=== PATIENT | male | born 1980 | race Caucasian/White ===

== ENCOUNTER 2019-03-22 20:37 | Emergency (ER) | payer MEDICAID ==
[~2019-03-22] VITALS: Ht 175.3 cm; Wt 77.1 kg
[2019-03-22 21:18] LABS: BASOPHILS ABSOLUTE AUTO 0.18 K/mm3 (0.00-0.23); BASOPHILS PERCENT AUTO 2 % (0-2); EOSINOPHILS ABSOLUTE AUTO 0.29 K/mm3 (0.00-0.68); EOSINOPHILS PERCENT AUTO 4 % (0-6); Hematocrit 38.2 % (37.0-53.0); Hemoglobin 11.9 g/dL (13.5-17.5); IMMATURE GRAN ABSOLUTE AUTO 0.03 K/mm3 (0.00-0.10); IMMATURE GRAN PERCENT AUTO 0 % (0-1); LYMPHOCYTES ABSOLUTE AUTO 2.45 K/mm3 (0.84-5.20); LYMPHOCYTES PERCENT AUTO 33 % (21-46); MONOCYTES ABSOLUTE AUTO 1.11 K/mm3 (0.16-1.47); MONOCYTES PERCENT AUTO 15 % (4-13); Mean Corpuscular HGB Conc 31.2 g/dL (31.5-36.5); Mean Corpuscular Volume 87 fL (80-100); Mean Platelet Volume 9.6 fL (9.1-12.4); NEUTROPHILS ABSOLUTE AUTO 3.48 K/mm3 (1.96-9.15); NEUTROPHILS PERCENT AUTO 46 % (41-73); Platelet Count 321 K/mm3 (150-400); RDW Coefficient Variation 17.2 % (11.7-14.2); White Blood Cell Count 7.54 K/mm3 (4.00-11.30)
[2019-03-22 21:40] LABS: Alanine Aminotransfer (ALT/SGP 75 U/L (12-78); Albumin, Blood 3.6 g/dL (3.4-5.0); Albumin/Globulin Ratio 0.9 (0.8-1.8); Alk Phos 146 U/L (50-136); Anion Gap 9 mmol/L (6-16); Aspartate Aminotrans (AST/SGOT 78 U/L (12-37); Bilirubin, Total 0.4 mg/dL (0.1-1.0); Blood Urea Nitrogen 5 mg/dL (8-24); Bun/Creatinine Ratio 7.3 (12.0-20.0); CO2, Blood 22 mmol/L (21-32); Calcium, Blood 8.6 mg/dL (8.5-10.1); Chloride, Blood 107 mmol/L (98-108); Creatinine, Blood 0.68 mg/dL (0.60-1.20); Glomerular Filtration Rate >60 (60-); Glucose, Blood 96 mg/dL (70-99); Potassium, Blood 4.1 mmol/L (3.5-5.5); Salicylate 6.7 mg/dL (2.8-20.0); Sodium, Blood 138 mmol/L (136-145); Total Protein, Blood 7.6 g/dL (6.4-8.2)
[2019-03-22 21:42] LABS: Source, Urine Clean Catch
[2019-03-22 21:48] LABS: Bilirubin, Urine Neg (Neg); Blood, Urine Neg (Neg); Glucose Qualitative, Urine Neg (Neg); Ketones, Urine Neg (Neg); Leukocyte Esterase, Urine Neg (Neg); Nitrite, Urine Neg (Neg); Protein, Urine 1+ (Neg); Urobilinogen, Urine NORM (Normal)
[2019-03-22 21:50] LABS: Ethanol (Alcohol), Blood, Med 334 mg/dL
[2019-03-22 21:51] LABS: Acetaminophen, Random <2.0 ug/mL (10.0-30.0)
[2019-03-22 21:57] LABS: Appearance, Urine Clear (Clear); Color, Urine Pale Yellow (P-Yellow)
[2019-03-22 22:02] LABS: U Amphetamine Screen Not Detected; U Barbituate Screen Not Detected; U Benzodiazapine Screen Not Detected; U Buprenorphine Screen Not Detected; U Cannabinoids Screen Not Detected; U Cocaine Screen Not Detected; U Methadone Screen Not Detected; U Methamphetamine Screen Not Detected; U Opiates Screen Not Detected; U Oxycodone Screen Not Detected; U Phencyclidine Screen Not Detected; U Propoxyphene Screen Not Detected
== END 2019-03-22 22:55 | disposition left against medical advice (07) ==
LOC: ER 20:37
PROVIDERS: Physician Assistant
DX: F10.20 Alcohol dependence, uncomplicated (principal)
CPT/HCPCS: 36415; 80053; 84443; 85025; 93005; 93010; 99284-25; G0480

== ENCOUNTER 2019-03-23 00:49 | Emergency (ER) | payer SELFPAY | END 2019-03-23 02:45 | disposition left against medical advice (07) | LOC: ER 00:49 | DX: Z53.21 Procedure and treatment not carried out due to patient leaving prior to being seen by health care provider (principal) ==

== ENCOUNTER 2019-03-25 15:11 | Emergency (ER) | payer MEDICAID ==
[~2019-03-25] VITALS: Ht 175.3 cm; Wt 77.1 kg
[2019-03-25 19:12] LABS: BASOPHILS ABSOLUTE AUTO 0.18 K/mm3 (0.00-0.23); BASOPHILS PERCENT AUTO 3 % (0-2); EOSINOPHILS ABSOLUTE AUTO 0.26 K/mm3 (0.00-0.68); EOSINOPHILS PERCENT AUTO 4 % (0-6); Hematocrit 38.5 % (37.0-53.0); Hemoglobin 11.8 g/dL (13.5-17.5); IMMATURE GRAN ABSOLUTE AUTO 0.01 K/mm3 (0.00-0.10); IMMATURE GRAN PERCENT AUTO 0 % (0-1); LYMPHOCYTES ABSOLUTE AUTO 2.41 K/mm3 (0.84-5.20); LYMPHOCYTES PERCENT AUTO 40 % (21-46); MONOCYTES PERCENT AUTO 10 % (4-13); Mean Corpuscular HGB 26.8 pg (26.0-34.0); Mean Corpuscular HGB Conc 30.6 g/dL (31.5-36.5); Mean Corpuscular Volume 88 fL (80-100); Mean Platelet Volume 9.6 fL (9.1-12.4); NEUTROPHILS ABSOLUTE AUTO 2.57 K/mm3 (1.96-9.15); NEUTROPHILS PERCENT AUTO 43 % (41-73); Platelet Count 328 K/mm3 (150-400); RDW Coefficient Variation 17.1 % (11.7-14.2); RDW Standard Deviation 54.3 fL (35.1-46.3); White Blood Cell Count 6.03 K/mm3 (4.00-11.30)
[2019-03-25 19:32] LABS: Alanine Aminotransfer (ALT/SGP 60 U/L (12-78); Albumin, Blood 3.3 g/dL (3.4-5.0); Albumin/Globulin Ratio 0.9 (0.8-1.8); Alk Phos 132 U/L (50-136); Anion Gap 6 mmol/L (6-16); Aspartate Aminotrans (AST/SGOT 62 U/L (12-37); Bilirubin, Total 0.3 mg/dL (0.1-1.0); Blood Urea Nitrogen 4 mg/dL (8-24); Bun/Creatinine Ratio 5.8 (12.0-20.0); CO2, Blood 23 mmol/L (21-32); Calcium, Blood 8.5 mg/dL (8.5-10.1); Chloride, Blood 111 mmol/L (98-108); Globulin, Blood 3.7 g/dL (2.2-4.0); Glomerular Filtration Rate >60 (60-); Glucose, Blood 95 mg/dL (70-99); Potassium, Blood 4.1 mmol/L (3.5-5.5); Sodium, Blood 140 mmol/L (136-145)
[2019-03-25 19:34] LABS: Ethanol (Alcohol), Blood, Med 316 mg/dL
== END 2019-03-25 19:50 | disposition home or self-care (01) ==
LOC: ER 15:11
PROVIDERS: Emergency Medicine
DX: F10.129 Alcohol abuse with intoxication, unspecified (principal); F17.200 Nicotine dependence, unspecified, uncomplicated
CPT/HCPCS: 36415; 80053; 85025; 99284; G0480

== ENCOUNTER 2019-07-20 10:21 | Inpatient (IN) | payer OTHER ==
[~2019-07-20] VITALS: Ht 175.3 cm; Wt 71.6 kg
[~2019-07-20 10:21] MED LIST: Bactrim Ds Tab1 EACH PO; Cephalexin500 M1 PO
[2019-07-20 11:12] LABS: Source, Urine Clean Catch
[2019-07-20 11:18] LABS: BASOPHILS PERCENT AUTO 2 % (0-2); EOSINOPHILS PERCENT AUTO 4 % (0-6); Hematocrit 39.3 % (37.0-53.0); Hemoglobin 12.4 g/dL (13.5-17.5); IMMATURE GRAN ABSOLUTE AUTO 0.03 K/mm3 (0.00-0.10); IMMATURE GRAN PERCENT AUTO 1 % (0-1); LYMPHOCYTES ABSOLUTE AUTO 1.37 K/mm3 (0.84-5.20); LYMPHOCYTES PERCENT AUTO 25 % (21-46); MONOCYTES ABSOLUTE AUTO 0.92 K/mm3 (0.16-1.47); MONOCYTES PERCENT AUTO 17 % (4-13); Mean Corpuscular HGB Conc 31.6 g/dL (31.5-36.5); Mean Corpuscular Volume 89 fL (80-100); Mean Platelet Volume 10.9 fL (9.1-12.4); NEUTROPHILS ABSOLUTE AUTO 2.86 K/mm3 (1.96-9.15); NEUTROPHILS PERCENT AUTO 52 % (41-73); Platelet Count 215 K/mm3 (150-400); RDW Coefficient Variation 18.8 % (11.7-14.2); RDW Standard Deviation 61.6 fL (35.1-46.3); Red Blood Cell Count 4.43 M/mm3 (4.30-5.90); White Blood Cell Count 5.48 K/mm3 (4.00-11.30)
[2019-07-20 11:21] LABS: Bilirubin, Urine Neg (Neg); Blood, Urine Neg (Neg); Glucose Qualitative, Urine Neg (Neg); Ketones, Urine Neg (Neg); Leukocyte Esterase, Urine Neg (Neg); Nitrite, Urine Neg (Neg); Protein, Urine Neg (Neg); Specific Gravity, Urine 1.005 (1.003-1.022); Urobilinogen, Urine NORM (Normal)
[2019-07-20 11:36] LABS: U Benzodiazapine Screen DETECTED
[2019-07-20 11:37] LABS: Alanine Aminotransfer (ALT/SGP 72 U/L (12-78); Albumin, Blood 3.6 g/dL (3.4-5.0); Albumin/Globulin Ratio 0.8 (0.8-1.8); Alk Phos 235 U/L (50-136); Anion Gap 9 mmol/L (6-16); Aspartate Aminotrans (AST/SGOT 91 U/L (12-37); Bilirubin, Total 1.1 mg/dL (0.1-1.0); Blood Urea Nitrogen 11 mg/dL (8-24); Bun/Creatinine Ratio 17.4 (12.0-20.0); CO2, Blood 25 mmol/L (21-32); Calcium, Blood 10.2 mg/dL (8.5-10.1); Chloride, Blood 101 mmol/L (98-108); Creatinine, Blood 0.63 mg/dL (0.60-1.20); Ethanol (Alcohol), Blood, Med <3 mg/dL; Globulin, Blood 4.4 g/dL (2.2-4.0); Glomerular Filtration Rate >60 (60-); Glucose, Blood 89 mg/dL (70-99); Potassium, Blood 3.3 mmol/L (3.5-5.5); Sodium, Blood 135 mmol/L (136-145); Troponin I <0.015 ng/mL (0.000-0.040)
[2019-07-20 11:38] LABS: U Amphetamine Screen Not Detected; U Barbituate Screen Not Detected; U Buprenorphine Screen Not Detected; U Cannabinoids Screen Not Detected; U Cocaine Screen Not Detected; U Methadone Screen Not Detected; U Methamphetamine Screen Not Detected; U Opiates Screen Not Detected; U Oxycodone Screen Not Detected; U Propoxyphene Screen Not Detected
[2019-07-20 11:43] LABS: Appearance, Urine Clear (Clear); Color, Urine Yellow (P-Yellow)
[2019-07-20 15:34] LABS: Hematocrit 32.6 % (37.0-53.0); Hemoglobin 10.3 g/dL (13.5-17.5); Mean Corpuscular HGB 28.1 pg (26.0-34.0); Mean Corpuscular HGB Conc 31.6 g/dL (31.5-36.5); Mean Corpuscular Volume 89 fL (80-100); Mean Platelet Volume 11.1 fL (9.1-12.4); Platelet Count 201 K/mm3 (150-400); RDW Standard Deviation 62.1 fL (35.1-46.3); Red Blood Cell Count 3.66 M/mm3 (4.30-5.90)
[2019-07-20 15:52] LABS: Alanine Aminotransfer (ALT/SGP 60 U/L (12-78); Albumin, Blood 2.9 g/dL (3.4-5.0); Albumin/Globulin Ratio 0.8 (0.8-1.8); Alk Phos 197 U/L (50-136); Anion Gap 7 mmol/L (6-16); Aspartate Aminotrans (AST/SGOT 73 U/L (12-37); Bilirubin, Total 0.9 mg/dL (0.1-1.0); Blood Urea Nitrogen 10 mg/dL (8-24); CO2, Blood 25 mmol/L (21-32); Calcium, Blood 9.4 mg/dL (8.5-10.1); Chloride, Blood 109 mmol/L (98-108); Creatinine, Blood 0.67 mg/dL (0.60-1.20); Globulin, Blood 3.7 g/dL (2.2-4.0); Glomerular Filtration Rate >60 (60-); Glucose, Blood 88 mg/dL (70-99); Potassium, Blood 4.1 mmol/L (3.5-5.5); Sodium, Blood 141 mmol/L (136-145); Total Protein, Blood 6.6 g/dL (6.4-8.2)
--- NOTE | 2019-07-20 16:10 | NUR ---
RECEIVED PATIENT FROM ED AT 1525. PT WAS AWAKE, CONFUSED, REACHING FOR THINGS IN THE AIR, MUMBLING INCOHERENTLY. SHORTLY AFTER TRANSFER TO BED, BECAME MORE AGITATED AND RESTLESS, ATTEMPTING TO GET OOB TO LOOK FOR CIGARETTES. PLACED IN BILATERAL WRIST AND ANKLE RESTRAINTS WITH A ALEX VEST FOR HIS SAFETY. ATIVAN 4 MG IV GIVEN WITH NO EFFECT. PRECEDEX GTT STARTED. PT MORE CALM, RESTING COMFORTABLY.
--- NOTE | 2019-07-20 19:15 | NUR ---
SHIFT SUMMARY: PT REMAINED CALM ON PRECEDEX GTT. VSS, SINUS RHYTHM. SLEEPING AT THIS TIME. NO W/D SXS NOTED. LUNGS CLEAR.
--- NOTE | 2019-07-20 20:00 | NUR ---
PT RESTING IN BED. ON PRECEDEX GTT FOR AGITATION RELATED TO ETOH WD. PT WILL TURN HEAD TOWARDS VOICE WHEN HIS NAME IS SAID. WILL NOT OPEN EYE'S, DOES NOT FOLLOW COMMANDS. DROWSY. NO SIGN OF DISTRESS.
[2019-07-21 03:18] LABS: BASOPHILS ABSOLUTE AUTO 0.08 K/mm3 (0.00-0.23); BASOPHILS PERCENT AUTO 2 % (0-2); EOSINOPHILS ABSOLUTE AUTO 0.24 K/mm3 (0.00-0.68); EOSINOPHILS PERCENT AUTO 5 % (0-6); Hematocrit 35.4 % (37.0-53.0); Hemoglobin 11.1 g/dL (13.5-17.5); IMMATURE GRAN ABSOLUTE AUTO 0.01 K/mm3 (0.00-0.10); IMMATURE GRAN PERCENT AUTO 0 % (0-1); LYMPHOCYTES ABSOLUTE AUTO 1.22 K/mm3 (0.84-5.20); LYMPHOCYTES PERCENT AUTO 23 % (21-46); MONOCYTES ABSOLUTE AUTO 0.75 K/mm3 (0.16-1.47); MONOCYTES PERCENT AUTO 14 % (4-13); Mean Corpuscular HGB Conc 31.4 g/dL (31.5-36.5); Mean Corpuscular Volume 89 fL (80-100); Mean Platelet Volume 10.3 fL (9.1-12.4); NEUTROPHILS ABSOLUTE AUTO 3.09 K/mm3 (1.96-9.15); NEUTROPHILS PERCENT AUTO 57 % (41-73); Platelet Count 204 K/mm3 (150-400); RDW Coefficient Variation 18.7 % (11.7-14.2); RDW Standard Deviation 61.1 fL (35.1-46.3); Red Blood Cell Count 3.97 M/mm3 (4.30-5.90); White Blood Cell Count 5.39 K/mm3 (4.00-11.30)
[2019-07-21 03:38] LABS: Alanine Aminotransfer (ALT/SGP 56 U/L (12-78); Albumin, Blood 2.8 g/dL (3.4-5.0); Albumin/Globulin Ratio 0.8 (0.8-1.8); Alk Phos 189 U/L (50-136); Anion Gap 7 mmol/L (6-16); Aspartate Aminotrans (AST/SGOT 55 U/L (12-37); Bilirubin, Total 0.9 mg/dL (0.1-1.0); Blood Urea Nitrogen 6 mg/dL (8-24); Bun/Creatinine Ratio 9.8 (12.0-20.0); CO2, Blood 24 mmol/L (21-32); Chloride, Blood 113 mmol/L (98-108); Creatinine, Blood 0.61 mg/dL (0.60-1.20); Globulin, Blood 3.7 g/dL (2.2-4.0); Glomerular Filtration Rate >60 (60-); Glucose, Blood 101 mg/dL (70-99); Potassium, Blood 3.8 mmol/L (3.5-5.5); Sodium, Blood 144 mmol/L (136-145); Total Protein, Blood 6.5 g/dL (6.4-8.2)
--- NOTE | 2019-07-21 05:42 | NUR ---
SUMMARY PT HAS BEEN SLEEPING MOST OF THE NIGHT. WILL AWAKEN WHEN STIMULATED AND WILL HOLLER OUT NONSENSICAL WORDS AT TIMES. THIS AM HE WOKE UP AND IS ADAMANT ABOUT GOING OUTSIDE TO SMOKE. YELLING OUT. CAN STATE THAT HE IS IN THE HOSPITAL. GAVE ATIVAN. ON PRECEDEX GTT FOR ETOH WD. HAS CONDOM CATH ON DUE TO BEING INCONTINENT.
--- NOTE | 2019-07-21 08:20 | NUR ---
ASSUMED CARE OF PT AT 0700. REPORT FROM RAJ PAL. PT RESTING IN BED. SOFT BILATERAL WRIST RESTRAINTS AND ALEX VEST IN PLACE. PT ALTERNATES BETWEEN SLEEP AND WAKES, PULLING ON RESTRAINTS, YELLING OUT NON SENSICAL PHRASES. APPEARS TO BE HAVING AUDITORY AND VISUAL HALLUCINATIONS. PT STATES HE IS HOSPITAL AND WANTS TO GO SMOKE. ATTEMTPED TO REDIRECT. PT THEN MAKES OTHER NONSENSICAL COMMENTS. RETURNS TO SLEEP. PRECEDEX INFUSING AT 1.0 MCG/KG/HR AT THIS TIME. WILL CONTINUE TO MONITOR CIWA AND RESTRAINTS FOR PT SAFETY. VSS.
--- NOTE | 2019-07-21 11:18 | NUR ---
DR GREWAL AT BEDSIDE. UPDATED ON PT STATUS THIS AM. PRECEDEX CONTINUES AT 0.7 MCG/KG/HR. PT SLEEPING AND NO LONGER HAVING OUTBURSTS POST LIBRUIM ADMINSTRATION. WILL CONTINUE TO MONITOR.
--- NOTE | 2019-07-21 17:26 | NUR ---
SHIFT SUMMARY PT REMAINED ON PRECEDEX ENTIRE SHIFT, CURRENTLY INFUSING AT 0.7 MCG/KG/HR. PT WAKES INTERMITTANTLY OR c VERBAL STIMULI. PT MENTAL STATUS IMPROVING THIS SHIFT. OCCASIONAL MAKES NONSENSICAL COMMENTS BUT ABLE TO CONVERSE BETTER. LESS AGGITATED THAN THIS MORNING. ALSO APPEARS TO HAVE SOME HALLUCINATION BUT LESS FREQUENT THAN THIS MORNING AND PT MORE DIRECTABLE. PT REQUESTING TO SEE MOTHER AND TEENAGE CHILDREN. CALL PLACED TO MOTHERHERB, TO UPDATE. PT TAKING PO FLUIDS, MEDICATED c LIBRUIM NEEDED. WILL CONTINUE TO MONITOR, REPORT TO ONCOMING NURSE.
[2019-07-22 03:41] LABS: BASOPHILS ABSOLUTE AUTO 0.06 K/mm3 (0.00-0.23); BASOPHILS PERCENT AUTO 1 % (0-2); EOSINOPHILS ABSOLUTE AUTO 0.25 K/mm3 (0.00-0.68); EOSINOPHILS PERCENT AUTO 3 % (0-6); Hematocrit 35.8 % (37.0-53.0); IMMATURE GRAN ABSOLUTE AUTO 0.03 K/mm3 (0.00-0.10); IMMATURE GRAN PERCENT AUTO 0 % (0-1); LYMPHOCYTES ABSOLUTE AUTO 1.18 K/mm3 (0.84-5.20); LYMPHOCYTES PERCENT AUTO 14 % (21-46); MONOCYTES ABSOLUTE AUTO 1.31 K/mm3 (0.16-1.47); MONOCYTES PERCENT AUTO 15 % (4-13); Mean Corpuscular HGB 27.6 pg (26.0-34.0); Mean Corpuscular HGB Conc 30.7 g/dL (31.5-36.5); Mean Corpuscular Volume 90 fL (80-100); Mean Platelet Volume 10.5 fL (9.1-12.4); NEUTROPHILS ABSOLUTE AUTO 5.73 K/mm3 (1.96-9.15); NEUTROPHILS PERCENT AUTO 67 % (41-73); Platelet Count 222 K/mm3 (150-400); RDW Coefficient Variation 18.3 % (11.7-14.2); RDW Standard Deviation 60.4 fL (35.1-46.3); Red Blood Cell Count 3.98 M/mm3 (4.30-5.90); White Blood Cell Count 8.56 K/mm3 (4.00-11.30)
[2019-07-22 03:49] LABS: Anion Gap 8 mmol/L (6-16); Blood Urea Nitrogen 4 mg/dL (8-24); Bun/Creatinine Ratio 7.8 (12.0-20.0); CO2, Blood 23 mmol/L (21-32); Calcium, Blood 8.4 mg/dL (8.5-10.1); Chloride, Blood 110 mmol/L (98-108); Creatinine, Blood 0.52 mg/dL (0.60-1.20); Glomerular Filtration Rate >60 (60-); Glucose, Blood 93 mg/dL (70-99); Magnesium, Blood 1.9 mg/dL (1.6-2.4); Phosphorus, Blood 3.5 mg/dL (2.5-4.9); Sodium, Blood 141 mmol/L (136-145)
--- NOTE | 2019-07-22 05:59 | NUR ---
SHIFT SUMMARY PATIENT HAD A ROUGHT NIGHT. CIWAs CONTINUED TO CLIMB DESPITE GIVING MULTIPLE LIBRIUM, AT ONE POINT 100MG, MULTIPLE DOSES OF ATIVAN. RECEIVED 3 MG IV HALDOL, NOW SLEEPING SOUNDLY. PATIENT USUALLY ANSWERED ALL ORIENTATION QUESTIONS CORRECTLY, WAS MOSTLY BEING SCORED ON AGITATION, ANXIETY, TREMORS, HEADACHE, AND SWEATING. WAS NEVER COMBATIVE, JUST CONTINUING TO TRY TO GET OUT OF BED TO "GO SMOKE A CIGARETTE," FAILED AT REDIRECTING/ REORIENTING. ASSESSMENT IS CHARTED. VSS. WILL CONTINUE TO MONITOR.
--- NOTE | 2019-07-22 08:00 | NUR ---
ASSESMENT PT RESTRAINED WITH BILAT SOFT WRIST RESTRAINTS AND VEST. CHÁVEZ AND WILL FOLLOW COMMANDS AND OPEN EYES TO VERBAL STIM BUT MUMBLES WORDS ANXIOUS AT TIMES AND CIWA MEDS PER MD ORDERS, CONFUSED BUR REDIRECTABLE VSS, AFEBRILE AND PALP PULSES T/O WITH HR IN THE LOW 60S WITH NO ECTOPY TRACE GENERALIZED EDEMA. SATS REMAIN GREATER THAN 90, CLEAR AND DIM BILAT. ABD SOFT ROUND AND NON TENDER AND BT T/O WITH NO BM.UO VIA CONDOM CATH CLEAR AND YELLOW. SKIN INTACT. WILL CONT TO MONITOR.
[2019-07-23 04:05] LABS: Anion Gap 7 mmol/L (6-16); Blood Urea Nitrogen 3 mg/dL (8-24); Bun/Creatinine Ratio 5.1 (12.0-20.0); CO2, Blood 22 mmol/L (21-32); Calcium, Blood 8.6 mg/dL (8.5-10.1); Chloride, Blood 113 mmol/L (98-108); Creatinine, Blood 0.59 mg/dL (0.60-1.20); Glomerular Filtration Rate >60 (60-); Glucose, Blood 96 mg/dL (70-99); Magnesium, Blood 2.2 mg/dL (1.6-2.4); Potassium, Blood 3.5 mmol/L (3.5-5.5); Sodium, Blood 142 mmol/L (136-145)
--- NOTE | 2019-07-23 07:21 | NUR ---
SHIFT SUMMARY PATIENT SLEPT WELL THROUGH MOST OF NIGHT. AROUND 3AM, PATIENT EXPERIENCED WORSENING WITHDRAWL SYMPTOMS, GAVE LIBRIUM, HALDOL, EVENTUALLY ZYPREXA, NOW CALM. WAS NEVER COMBATIVE, JUST EXPERIENCING SEVERE TREMORS, CONFUSION, TRYING TO GET OUT OF BED THINKING HE IS AT HOME, ABLE TO REORIENT, BUT QUICKLY FORGETS HE IS AT THE HOSPITAL, IN ABOUT 5 MINUTES TRYING TO GET OUT OF BED AGAIN, EXPERIENCES HIGH H.R., OCASIONAL VISUAL HALUCINATIONS (DESCRIBES "FLOATERS,") AND SWEATING. PATIENT IS NOW CALM, COOL, COLLECTED, WATCHING TV IN BED. ASSESSMENT IS CHARTED. VSS. NO C/O PAIN. IT HAS BEEN A PLEASURE TAKING CARE OF THIS PATIENT.
--- NOTE | 2019-07-23 08:30 | NUR ---
ASSUMED CARE OF PT AT 0700. REPORT FROM DEVIN PAL. PT RESTING IN BED. PRECEDEX INFUSING AT 0.7 MCG/KG/HR. PT APPEARS TO BE HAVING VISUAL AND AUDITORY HALLUCINATION. PT ORIENTED TO SELF AND HOSPITAL BUT THEN ASKES ME TO GO GET SHORTS FROM "DOWNSTAIRS." FOLLOWS SIMPLE COMMANDS. PT SLIGHTLY DIAPHORETIC. DENIES N/V OR AVINA. CONDOM CATH IN PLACE. SIDE RAILS UP FOR SAFETY. SEIZURE PADS IN PLACE. BILATERAL SOFT WRIST RESTRAINTS AND ALEX VEST IN PLACE FOR SAFETY AND TO PROTECT LINES AND TUBES. VSS. WILL CONTINUE TO MONITOR.
--- NOTE | 2019-07-23 12:48 | NUR ---
PT UPDATE: PT BECOMING MORE RESTLESS. ATTEMPTING TO GET OOB AND STARTING TO PULL ON VITAL LINES. MEDICATED WITH ATIVAN IV PER ORDERS.
--- NOTE | 2019-07-23 16:52 | NUR ---
SHIFT SUMMARY AFTER INCREASING PRECEDEX, CIWA INCREASED, PT MORE AGITATED AND LESS REDIRECTABLE. PRECEDEX PLACED ON STANDBY. PT MEDICATED c LIBRIUM PO THIS SHIFT. PT CONTINUES TO HAVE VISUAL AND AUDITORY HALLUCINATIONS BUT IS MORE REDIRECTABLE. INTERMITTANTLY ATTEMPTS TO CLIMB OUT OF BED, ALEX VEST IN PLACE. PT DRINKING PO FLUIDS AND EATING APPLESAUCE AND PUDDING THIS SHIFT. BED BATH GIVEN THIS SHIFT. CONDOM CATH REMAINS IN PLACE. VSS. SOCIAL SERVICE CONSULT PLACED AFTER RECEIVING CALL FROM [facility] STATING THAT PT HAS BEEN DISCHARGED FROM THEIR FACILITY AND CANNOT RETURN. STAFF REPORTED THAT PT WAS ONLY ENROLLED IN 6 DAY DETOX PROGRAM, NOT AN INPATIENT TREATMENT PROGRAM. REPORT TO ONCOMING NURSE.
[2019-07-24 03:39] LABS: Anion Gap 7 mmol/L (6-16); Blood Urea Nitrogen 2 mg/dL (8-24); Bun/Creatinine Ratio 3.3 (12.0-20.0); CO2, Blood 22 mmol/L (21-32); Calcium, Blood 8.5 mg/dL (8.5-10.1); Chloride, Blood 115 mmol/L (98-108); Glomerular Filtration Rate >60 (60-); Glucose, Blood 97 mg/dL (70-99); Magnesium, Blood 1.9 mg/dL (1.6-2.4); Potassium, Blood 3.4 mmol/L (3.5-5.5); Sodium, Blood 144 mmol/L (136-145)
--- NOTE | 2019-07-24 06:13 | NUR ---
SHIFT SUMMARY PATIENT SLEPT WELL THROUGH MOST OF NIGHT. AT 9PM LAST NIGHT, GAVE 100MG LIBRIUM AND 8MG ATIVAN IN VERY SHORT PERIOD OF TIME, CIWA ~ 35. PATIENT HAS SLEPT CONSISTENTLY THROUGH REST OF NIGHT, AND IS SCORING CIWA OF 0-2. WOULD LIKE TO SEE PATIENT ON SCHEDULED LIBRIUM, THERE ARE LARGE SPIKES AND DECREASES IN WITHDRAWL SYMPTOMS. PATIENT IS NEVER COMBATIVE WITH STAFF, JUST CONTINUES TO FORGET WHERE HE IS AT, AND IF ABLE TO CONVINCE HIM HE IS IN HOSPITAL, QUICKLY FORGETS, THINKING HE IS BACK HOME, AND WANTS TO GO SMOKE A CIGARETTE. GETS TOO SLEEPY TO BE SAFE TO GIVE NICOTINE GUM AT THIS POINT. NO C/O PAIN. ASSESSMENT IS CHARTED. VSS. WILL CONTINUE TO MONITOR.
--- NOTE | 2019-07-24 07:20 | NUR ---
START OF SHIFT NOTE: RECEIVED REPORT FROM DEVIN ARAIZA RN, ASSUMED CARE, PATIENT IS AWAKE BUT DROWSY, ABLE TO TELL ME HE IS IN THE HOSPITAL, DOES NOT KNOW HE IS IN [place], AND STATES MONTH AUGUST, ALSO UNABLE TO TELL DATE/TIME AND WHO THE PRESIDENT IS, FOLLOWS COMMANDS AT THIS TIME, PRECEDEX AT 0.7, RECEIVED MAG REPLACEMENT AND POTASSIUM IV REPLACEMENT, ON NS AT 75 CC/HR, ON A REGULAR DIET, LUNG SOUNDS CLEAR BUT DIMINISHED, BOWEL TONES HYPOACTIVE, LAST BM ABOUT 4 DAYS AGO, CONDOM CATH IN PLACE, PATIENT IN BILATERAL SOFT WRIST AND VEST RESTRAINTS, ON A REGULAR DIET, BUT NOT HUNGRY AT THIS TIME, AFEBRILE, DENIES PAIN, CALL LIGHT IN REACH, WILL CONTINUE TO MONITOR.
--- NOTE | 2019-07-24 07:53 | NUR ---
DR. BAZAN IN TO SEE PATIENT, NEW ORDERS RECEIVED.
--- NOTE | 2019-07-24 11:25 | NUR ---
KAYLA FROM [facility] CALLED TO CHECK ON PATIENT STATUS, PER KAYLA [facility] HAS FINALIZED DETOX FOR THIS PATIENT, ONCE PATIENT IS DISCHARGED HE EITHER MAY GO HOME OR FOLLOW UP WITH [facility] AT [facility] FOR RESIDENTIAL TREATMENT, CALL OUT TO DISCHARGE PLANNING, BONNIE, TO SET UP POSSIBLE DISCHARGE TO [facility] FOR RESIDENTIAL TREATMENT ONCE PATIENT IS READY FOR DISCHARGE.
--- NOTE | 2019-07-24 11:49 | NUR ---
PATIENT'S MOM CALLING ABOUT PATIENT'S STATUS, UPDATE PROVIDED.
--- NOTE | 2019-07-24 12:00 | NUR ---
PATIENT RESTING COMFORTABLY, CONTINUES ON PRECEDEX AT 0.5 AND IS STILL IN BILATERAL WRIST RESTRAINTS AND VEST, COOPERATIVE MOST OF THE TIME, TOOK HIS NOON MEDICATION WITH SOME SIPS OF WATER, NO PROBLEM SWALLOWING, VSS, AFEBRILE, DENIES PAIN, CALL LIGHT IN REACH, WILL CONTINUE TO MONITOR.
--- NOTE | 2019-07-24 16:14 | NUR ---
PRECEDEX TURNED DOWN TO 0.3, PATIENT NOW MORE AWAKE, CONTINUES TO HAVE VISUAL AND AUDITORY HALLUCINATIONS, CALLING OUT FOR HIS MOM, SEEING HIS DAD IN THE ROOM AND TALKING TO HIM, CONDOM CATH REPLACED TWICE D/T BEING DISLODGED, VSS, PATIENT AFEBRILE, DENIES PAIN, CALL LIGHT IN REACH, WILL CONTINUE TO MONITOR.
--- NOTE | 2019-07-24 17:08 | NUR ---
PATIENT APPEARS TO HAVE SOME LUCID MOMENTS AND ASKS APPROPRIATELY FOR COFFEE OR ASKS WHY THE IV PUMP IS BEEPING, MOSTLY THOUGH HE REMAINS CONFUSED WITH HALLUCINATIONS AND DELUSIONS, AUDITORY AND VISUAL, CALL LIGHT IN REACH, WILL CONTINUE TO MONITOR.
--- NOTE | 2019-07-24 17:50 | NUR ---
SHIFT SUMMARY NOTE: NO ACUTE EVENTS DURING THIS SHIFT, PATIENT MOSTLY SLEEPING, PRECEDEX DRIP WAS STARTED AT 0.7 AND IS NOW AT 0.3, DR. BAZAN ASKED TO GET PATIENT OFF DRIP, SCHEDULED LIBRIUM EVERY [address], AND PATIENT SEEMS TO TOLERATE WELL, MORE AWAKE, TALKATIVE DURING DINNER, SPOKE ABOUT HIS CHILDREN AND THAT THEY VISIT HIM FREQUENTLY, ALSO ATE WITH GOOD APPETITE, CALM AND COOPERATIVE, VSS, AFEBRILE, DENIES PAIN, RESTRAINTS REMAIN IN PLACE AT THIS TIME, GOOD URINE OUTPUT, NO PROBLEM SWALLOWING, PATIENT WAS WATCHING TV AFTER DINNER FOR A WHILE, FOR DETAILS SEE SHIFT ASSESSMENT DOCUMENTATION AND NURSES NOTES, CALL LIGHT IN REACH, WILL CONTINUE TO MONITOR, AND GIVE REPORT TO ONCOMING FLY FRAME TENDER.
[2019-07-25 04:22] LABS: Alanine Aminotransfer (ALT/SGP 38 U/L (12-78); Albumin, Blood 2.5 g/dL (3.4-5.0); Albumin/Globulin Ratio 0.7 (0.8-1.8); Alk Phos 179 U/L (50-136); Anion Gap 7 mmol/L (6-16); Aspartate Aminotrans (AST/SGOT 26 U/L (12-37); Bilirubin, Total 0.5 mg/dL (0.1-1.0); Blood Urea Nitrogen 3 mg/dL (8-24); Bun/Creatinine Ratio 5.3 (12.0-20.0); CO2, Blood 22 mmol/L (21-32); Calcium, Blood 8.8 mg/dL (8.5-10.1); Chloride, Blood 115 mmol/L (98-108); Creatinine, Blood 0.57 mg/dL (0.60-1.20); Globulin, Blood 3.8 g/dL (2.2-4.0); Glomerular Filtration Rate >60 (60-); Glucose, Blood 98 mg/dL (70-99); Potassium, Blood 3.7 mmol/L (3.5-5.5); Sodium, Blood 144 mmol/L (136-145); Total Protein, Blood 6.3 g/dL (6.4-8.2)
--- NOTE | 2019-07-25 06:42 | NUR ---
SHIFT SUMMARY PATIENT SLEPT THROUGH MOST OF NIGHT. EARLY IN SHIFT SCORED CIWA OF ~32, GAVE 4MG ATIVAN, SLEPT THROUGH REST OF NIGHT. AGAIN, CONFUSION, CONSTANLY HALLUCINATING, UNABLE TO REDIRECT, TREMORS, NON-AGGRESSIVE, JUST TRYTING TO GET UP TO "MAKE MOM COFFEE," OR "FEED THE CAT." STARTED TURNING DOWN PRECEDEX THIS AM, PATIENT APPROPRIATE SO FAR. DID NOT REQUIRE MORE ATIVAN, LIBRIUM THROUGH REST OF NIGHT, ASIDE FROM WHAT WAS SCHEDULED. VSS. NO C/O PAIN. ASSESSMENT IS CHARTED. WILL CONTINUE TO MONITOR.
--- NOTE | 2019-07-25 07:26 | NUR ---
START OF SHIFT NOTE: RECEIVED REPORT FROM DEVIN ARAIZA RN, ASSUMED CARE, PATIENT IS SLEEPING BUT EASILY AROUSEABLE, DENIES PAIN, AFEBRILE, LUNG SOUNDS CLEAR BUT DIMINISHED ON RA SATING AT 95 %, SR, WITH HR IN 60'S, SBP'S IN 120'S BOWEL TNES HYPOACTIVE, CONDOM CATH IN PLACE, CONTINUES TO BE IN ALEX VEST, DEREK. SOFT RESTRAINTS REMOVED AT THIS TIME FOR TRIAL, STILL ON PRECEDEX AT 0.5, ALSO RECEIVED MULTIPLE DOSES OF ATIVAN DURING NOC SHIFT AND SCHEDULED LIBRIUM, CONTINUES TO BE CONFUSED ABOUT WHERE HE IS, AND CONTINUES TO HAVE SEVERE HALLUCINATIONS, HOWEVER, NO VIOLENT, CALM AND COOPERATIVE AT TIMES WHEN NOT HALLUCINATING, CALL LIGHT IN REACH, WILL CONTINUE TO MONITOR.
--- NOTE | 2019-07-25 10:11 | NUR ---
SPOKE WITH BONNIE, TEAR DOWN WORKER, AND NOTIFIED HER ABOUT MY CONVERSATION WITH [facility], THEY WILL NOT TAKE THIS PATIENT BACK FOR DETOX BUT THEY WILL WELCOME HIM FOR RESIDENTIAL TREATMENT.
--- NOTE | 2019-07-25 11:07 | NUR ---
PATIENT'S MOTHER CALLED, UPDATE OF PATIENT STATUS PROVIDED.
--- NOTE | 2019-07-25 11:30 | NUR ---
WANDA CELIS AT BEDSIDE.
--- NOTE | 2019-07-25 13:29 | NUR ---
DR. SMALL RETURNED CALL, WILL SEE PATIENT TOMORROW, UNABLE TO SEE HIM TODAY D/T PATIENT LOAD, IF THERE IS AN ISSUE HE SUGGESTS TELE PSYCH.
--- NOTE | 2019-07-25 13:45 | NUR ---
CALLED [facility] AND PATIENT'S BELONGINGS ARE STILL AT THAT FACILITY, SPOKE WITH KAYLA, PATIENT HAS TO GO BY AND GET THEM.
--- NOTE | 2019-07-25 14:56 | NUR ---
PATIENT RECEIVED 4 MG ATIVAN IV FOR EXTREME TREMORS AND HALLUCINATIONS, PATIENT IS RESTING COMFORTABLY, CONTINUES TO ONLY HAVE ALEX VEST, WRIST RESTRAINTS ARE OFF AT THIS TIME, CALM AND COOPERATIVE MOST OF THE TIME, ASKS FOR WATER AND FOOD APPROPRIATELY, IS STARTING TO WAKE UP MORE, AND HAS MORE CONCRETE THOUGHT PROCESSES, PRECEDEX DOWN TO 0.2 AT THIS TIME, PATIENT WATCHING TV DENIES PAIN, AFEBRILE, CALL LIGHT IN REACH, WILL CONTINUE TO MONITOR.
--- NOTE | 2019-07-25 17:49 | NUR ---
Attempted to engage Renaldo in theraputic conversation. He is still far too groggy to hold meaningful conversation about his future. Mostly he wanted me to bring him coffee and help him get ready to "go home." No family present. I will remain available.
--- NOTE | 2019-07-25 17:50 | NUR ---
SHIFT SUMMARY NOTE: NO ACUTE EVENTS DURING THIS SHIFT, PATIENT CONTINUES ON PRECEDEX AT 0.2 MCG, MUCH MORE ALERT AND FOLLOWING COMMANDS, NOT HOLLERING OUT DURING THIS SHIFT, BUT CONTINUES TO HAVE HALLUCINATIONS, RECEIVED ATIVAN 4 MG ONCE FOR EXTREME TREMORS AND HALLUCINATIONS, ATIVAN WAS EFFECTIVE, AND PATIENT IS ABLE TO MAKE NEEDS KNOWN, USED CALL LIGHT APPROPRIATELY AT TIMES, EATING DINNER INDEPENDENTLY, NO WRIST RESTRAINTS IN PLACE ONLY ALEX VEST, PATIENT RECEIVES SCHEDULED LIBRIUM, DR. BAZAN CONSULTED DR. SMALL, HE WILL SEE THE PATIENT TOMORROW, PATIENT REMAINED AFEBRILE AND PAIN FREE, CONDOM CATH IN PLACE AND PATIENT HAS GOOD OUTPUT, EATS AND DRINKS FINE, PATIENT HAD VISIT FROM HIS FAMILY TODAY BUT ONLY THE SON WAS AT BEDSIDE AFTER FAMILY WAS INSTRUCTED TO SEE PATIENT ONE AT A TIME AND FOR 10 MINUTES ONLY D/T HIS LABILE MINDSET, FOR DETAILS SEE SHIFT ASSESSMENT DOCUMENTATION AND NURSES NOTES, CALL LIGHT IN REACH, WILL CONTIINUE TO MONITOR AND GIVE REPORT TO ONCOMING FUNERAL HOME ATTENDANT.
--- NOTE | 2019-07-26 05:48 | NUR ---
SHIFT SUMMARY PATIENT HAS DONE VERY WELL TONIGHT. I TOOK THE VEST RESTRAINT OFF AT BEGINNING OF SHIFT AND PATIENT HAS BEEN APPROPRIATE ALL NIGHT. CIWA MAX ~ 20, MOSTLY TREMORS AND STRONG HALLUCINATIONS. GAVE X2 DOSES OF PRN ATIVAN. DANGLED AT BEDSIDE, ATTEMPTED TO STAND, BUT HAS ALMOST MINIMAL MUSCLE TONE,EXTREME TREMORS, WILL LIKELY NEED PHYSICAL THERAPY TO REGAIN STRENGTH, COORDINATION. PATIENT HAS BEEN VERY COOPERATIVE. A COUPLE OF EPISODES OF CONFUSION, HOWEVER EASILY REDIRECTABLE AFTER REMINDING HE IS IN ICU AT [facility]. USUALLY WAKES FROM SLEEP THINKING HE IS AT HOME OR IN A REHAB CENTER. HEART RATE GOT UP TO 180 ATTEMPTING TO STAND, BACK DOWN TO 90S AFTER REST, INCREASED PRECEDEX GTT. NO C/O PAIN. VSS. WILL CONTINUE TO MONITOR.
--- NOTE | 2019-07-26 08:12 | NUR ---
CARE ASSUMED ASSESSMENT COMPLETED. PT SITTING UP IN CHAIR, ALERT, ORIENTED X3, AFFECT FLAT, PT APPROPRIATE AND COOPERATIVE WITH CARE. BP HYPOTENSIVE, MAP 60'S, PT DENIES DIZZINES/CP/SOB. HR 120'S SIT. PRECEDEX 0.3, NS 75, PT DENIES PAIN. DR. BAZAN AT BEDSIDE, NS BOLUS ADMINISTERED PER ORDERS, PRECEDEX OFF. PT REMAINS IN CHAIR EATING BREAKFAST, STATES HE IS ANXIOUS TO GO HOME, INFORMED OF PLAN TO DECREASE MEDS TODAY AND POSSIBLY MOVE OUT OF ICU TOMORROW. AKSHAT Billingsley, ATIVAN HELD FOR BP AT THIS TIME.
--- NOTE | 2019-07-26 10:13 | NUR ---
UPDATE PT UP TO BR FOR LARGE BM, GAIT VERY WEAK, SHAKY, UNSTEADY, MAX ASSIST REQUIRED. PT THEN BACK TO CHAIR, FINISHED BREAKFAST, VSS. ASSISTED TO SHOWER VIA SHOWER CHAIR, TOLERATED WELL. PT ALERT, ORIENTED TO SELF AND SITUATION, COOPERATIVE WITH CARE. PRECEDEX REMAINS OFF. BP IMPROVED AFTER BOLUS.
--- NOTE | 2019-07-26 10:44 | NUR ---
UPDATE TREMORS INCREASING, PT MEDICATED WITH ATIVAN PER ORDERS. REMAINS COOPERATIVE AND CALM.
--- NOTE | 2019-07-26 13:57 | NUR ---
UPDATE: PT TOLERATED LUNCH WELL, REMAINS CONFUSED, REDIRECTABLE. SCHEDULED LIBRIUM ADMINISTERED PER ORDERS, PT COOPERATIVE, REMAINS TREMULOUS. WORKED WITH OT, PARTICIPATED WELL. OLU WHEELER AT BEDSIDE AT THIS TIME FOR EVAL. HR 90'S, BP WNL.
--- NOTE | 2019-07-26 16:57 | NUR ---
UPDATE PT UP TO [facility] TO [place] WITH GAIT BELT, WALKER, AND 1 PERSON ASSIST, THEN BACK TO CHAIR. SHORTLY AFTER, PT BECAME AGITATED, ANXIOUS, AND BEGAN HALLUCINATING. PT ASSISTED BACK TO BED, INSISTANT THAT HE MUST LEAVE, ALEX APPLIED. PRECEDEX RESUMED, ATIVAN ADMINISTERED. HR 90'S, BP STABLE, PT CALMING AFTER MEDICATIONS. WILL MONITOR CLOSELY.
--- NOTE | 2019-07-26 19:20 | NUR ---
END OF SHIFT PT RESPONDED WELL TO ATIVAN AND PRECEDEX, IS CALM AND COOPERATIVE AT THIS TIME, REMAINS CONFUSED AND HAS VISUAL HALLUCINATIONS. ALEX REMAINS IN PLACE, PT CONTINUES TO ATTEMPT TO GET OOB AT TIMES. VSS, PT'S AFFECT FLAT WITH SEDATIVES. PT ATE SOME DINNER, IS NOW SITTING QUIETLY IN BED WATCHING TV. REPORT TO ONCOMING SHIFT.
--- NOTE | 2019-07-26 19:55 | NUR ---
ASSUMED CARE NOTE: ASSUMED CARE OF PT AT 1900, RECEVIED REPORT FROM ELIZABETH PAL. PT IS CONFUSED AND ANXIOUS. HE CONTINUES TO CLIMB OUT OF BED BECAUSE HE THINKS HE HAS AN APPOINTMENT. PT IS NOT REDERICTABLE. PT IS ON RA WITH SPO2 @ 97 %. PT IS IN NSR WITH HR IN THE 80'S-90'S. PT DENIES SOB/PAIN. ACTIVE BOWEL TONES IN ALL FOUR QUADRANTS. PT IS INCONTIENT OF URINE AND BOWELS. CATH CRAWFORD PLACED TO PREVENT SKIN IRRITATION AND BREAKDOWN. ALEX VENT IN PLACE TO PREVENT FALL, BED ALARM ON. PRECEDEX @ 0.3MCG/KG/HR. WILL CONTINUE TO MONITOR PT T/O SHIFT.
[2019-07-27 05:32] LABS: Alanine Aminotransfer (ALT/SGP 35 U/L (12-78); Albumin, Blood 2.6 g/dL (3.4-5.0); Albumin/Globulin Ratio 0.7 (0.8-1.8); Alk Phos 148 U/L (50-136); Anion Gap 4 mmol/L (6-16); Aspartate Aminotrans (AST/SGOT 28 U/L (12-37); Bilirubin, Total 0.5 mg/dL (0.1-1.0); Blood Urea Nitrogen 3 mg/dL (8-24); Bun/Creatinine Ratio 4.3 (12.0-20.0); CO2, Blood 27 mmol/L (21-32); Chloride, Blood 114 mmol/L (98-108); Globulin, Blood 3.8 g/dL (2.2-4.0); Glomerular Filtration Rate >60 (60-); Glucose, Blood 81 mg/dL (70-99); Potassium, Blood 3.9 mmol/L (3.5-5.5); Sodium, Blood 145 mmol/L (136-145); Total Protein, Blood 6.4 g/dL (6.4-8.2)
--- NOTE | 2019-07-27 05:35 | NUR ---
SHIFT SUMMARY: PT REMAINS CONFUSED. HAS BEEN ATTEMPTING TO GET OUT OF BED MULTIPLE TIMES THIS SHIFT. PT PRECEDEX IS CURRENTLY AT 0.4MCG/KG/HR. LAST CIWA WAS 21. PT LEFT UPPER ARM IV WAS LEAKING. NEW IV ACCESS TO RIGHT WRIST IN PLACE. PT HAS BEEN ON RA WITH SPO2 ABOVE 95. NO COUGH PRESENT, PT DENIES FELLING SHORT OF BREATH. PT HAS BEEN IN SINUS RYTHYM FOR WITH HR IN THE 80-90'S. PT HAS ALSO BEEN HYPERTENSIVE, CATAPRESS GIVEN PER EMAR. PT HAS DENIED NAUSEA. PT HAS BEEN INCONTIENT OF URINE. PT PULLED CONDOM CATH OFF TWICE. IT WAS REAPPILED TO PREVENT SLIN BREAKDOWN. URINE IS CLEAR AND YELLOW. BED AT LOWEST LEVEL, CALL LIGHT WITHIN REACH. ALEX ON. WILL CONTINUE TO MONITOR UNTIL REPORT IS GIVEN TO NEXT SHIFT.
[2019-07-27 08:17] LABS: BASOPHILS ABSOLUTE AUTO 0.11 K/mm3 (0.00-0.23); BASOPHILS PERCENT AUTO 2 % (0-2); EOSINOPHILS ABSOLUTE AUTO 0.28 K/mm3 (0.00-0.68); EOSINOPHILS PERCENT AUTO 4 % (0-6); Hematocrit 35.7 % (37.0-53.0); IMMATURE GRAN ABSOLUTE AUTO 0.02 K/mm3 (0.00-0.10); IMMATURE GRAN PERCENT AUTO 0 % (0-1); LYMPHOCYTES ABSOLUTE AUTO 1.35 K/mm3 (0.84-5.20); LYMPHOCYTES PERCENT AUTO 18 % (21-46); MONOCYTES ABSOLUTE AUTO 1.64 K/mm3 (0.16-1.47); MONOCYTES PERCENT AUTO 22 % (4-13); Mean Corpuscular HGB 28.2 pg (26.0-34.0); Mean Corpuscular HGB Conc 30.8 g/dL (31.5-36.5); Mean Corpuscular Volume 92 fL (80-100); Mean Platelet Volume 9.8 fL (9.1-12.4); NEUTROPHILS ABSOLUTE AUTO 4.18 K/mm3 (1.96-9.15); NEUTROPHILS PERCENT AUTO 55 % (41-73); Platelet Count 282 K/mm3 (150-400); RDW Coefficient Variation 18.7 % (11.7-14.2); RDW Standard Deviation 63.7 fL (35.1-46.3); White Blood Cell Count 7.58 K/mm3 (4.00-11.30)
--- NOTE | 2019-07-27 08:30 | NUR ---
ASSESSMENT COMPLETED PT DROWSY AT SHIFT CHANGE, WAKES TO VOICE, IS CONFUSED AND IRRITABLE, GOES BACK TO SLEEP QUICKLY. DR. BAZAN IN TO SEE PATIENT, TITRATING PRECEDEX DOWN ABLE. PT REPOSITIONED IN BED FOR BREAKFAST, IS NOW AWAKE AND EATING WITHOUT DIFFICULTY, CONFUSED TO PLACE AND SITUATION, FOLLOWS COMMANDS. ALEX VEST REMAINS ON FOR SAFETY, CONDOM CATH IN PLACE FOR INCONTINENCE. SKIN INTACT, PT DENIES C/O.
--- NOTE | 2019-07-27 09:56 | NUR ---
UPDATE PT ATE BREAKFAST INDEPENDENTLY, REMAINED CALM AND COOPERATIVE, THOUGH CONFUSED. TOLERATED PO MEDS WELL, NOW RESTING IN BED WITH EYES CLOSED, VSS. CONTINUING TO TITRATE PRECEDEX DOWN.
--- NOTE | 2019-07-27 11:57 | NUR ---
UPDATE PT WOKEN UP FOR P/T, PARTICIPATED WELL, GOOD EFFORT. NOW SITTING IN CHAIR EATING LUNCH, COOPERATIVE WITH CARE. ALERT, ORIENTED X3 AT THIS TIME, AFFECT REMAINS SLIGHTLY FLAT.
--- NOTE | 2019-07-27 15:03 | NUR ---
UPDATE PT BACK TO BED, REPORTS HE IS HALLUCINATING, IS AWARE HALLUCINATIONS ARE NOT REAL. MEDICATED PER ORDERS, PT RESTING AND WATCHING TV, REMAINS CALM AND COOPERATIVE, VSS.
--- NOTE | 2019-07-27 18:12 | NUR ---
UPDATE PT RESPONDS WELL TO ATIVAN, DENIES HALLUCINATIONS AFTER RECEIVING. UP TO CHAIR THIS AFTERNOON WITH O/T, TREMORS LESS AND GAIT BECOMING SLIGHTLY STRONGER WITH GAIT BELT AND WALKER. PT SAT IN CHAIR FOR A WHILE, THEN WENT TO COMMODE AND BACK TO BED, IS NOW SITTING UP EATING DINNER. ATIVAN ADMINISTERED AT THIS TIME FOR HALLUCINATIONS, PT AWARE THAT HE IS SEEING THINGS THAT ARE NOT REAL, REMAINS CALM AND COOPERATIVE. VSS, TOLERATING PO WELL. CONDOM CATH REPLACED FOR REPEATED INCONTINENCE. ATTENDS ON.
--- NOTE | 2019-07-27 18:37 | NUR ---
END OF SHIFT PT RESTING IN BED, DENIES HALLUCINATIONS AT THIS TIME, VSS. HR 80'S, BP WNL. PRECEDEX REMAINS OFF. REPORT TO ONCOMING SHIFT.
--- NOTE | 2019-07-27 20:00 | NUR ---
PT RESTING IN BED. PT STATES HE IS HAVING HALLUCINATIONS. SEE CIWA ASSESS. GAVE ATIVAN AND LIBRIUM. PT IS ASKING APPROPRIATE QUESTIONS ABOUT CARE AND IS REDIRECTABLE. ASKING QUESTIONS ABOUT [facility] AND REMEMBERS BEING THERE BEFORE HE CAME IN TO THE HOSPITAL. ANSWERED MONTH AND YEAR RIGHT, WAS OFF ON DAY BY 5 DAYS. WILL CONTINUE TO MONITOR CIWA AND MEDICATE WITH ATIVAN AND LIBRIUM. WILL TRY TO KEEP THE PRECEDEX OFF.
[2019-07-28 04:00] LABS: BASOPHILS ABSOLUTE AUTO 0.13 K/mm3 (0.00-0.23); BASOPHILS PERCENT AUTO 2 % (0-2); EOSINOPHILS ABSOLUTE AUTO 0.26 K/mm3 (0.00-0.68); EOSINOPHILS PERCENT AUTO 3 % (0-6); Hematocrit 34.3 % (37.0-53.0); Hemoglobin 10.7 g/dL (13.5-17.5); IMMATURE GRAN ABSOLUTE AUTO 0.05 K/mm3 (0.00-0.10); IMMATURE GRAN PERCENT AUTO 1 % (0-1); LYMPHOCYTES ABSOLUTE AUTO 1.88 K/mm3 (0.84-5.20); LYMPHOCYTES PERCENT AUTO 22 % (21-46); MONOCYTES ABSOLUTE AUTO 2.04 K/mm3 (0.16-1.47); MONOCYTES PERCENT AUTO 24 % (4-13); Mean Corpuscular HGB 28.5 pg (26.0-34.0); Mean Corpuscular HGB Conc 31.2 g/dL (31.5-36.5); Mean Corpuscular Volume 92 fL (80-100); Mean Platelet Volume 9.8 fL (9.1-12.4); NEUTROPHILS ABSOLUTE AUTO 4.21 K/mm3 (1.96-9.15); NEUTROPHILS PERCENT AUTO 49 % (41-73); Platelet Count 315 K/mm3 (150-400); RDW Coefficient Variation 18.8 % (11.7-14.2); RDW Standard Deviation 63.3 fL (35.1-46.3); Red Blood Cell Count 3.75 M/mm3 (4.30-5.90); White Blood Cell Count 8.57 K/mm3 (4.00-11.30)
[2019-07-28 04:21] LABS: Alanine Aminotransfer (ALT/SGP 32 U/L (12-78); Albumin, Blood 2.7 g/dL (3.4-5.0); Albumin/Globulin Ratio 0.7 (0.8-1.8); Alk Phos 146 U/L (50-136); Anion Gap 9 mmol/L (6-16); Aspartate Aminotrans (AST/SGOT 24 U/L (12-37); Bilirubin, Total 0.5 mg/dL (0.1-1.0); Blood Urea Nitrogen 3 mg/dL (8-24); Bun/Creatinine Ratio 4.2 (12.0-20.0); CO2, Blood 24 mmol/L (21-32); Calcium, Blood 8.8 mg/dL (8.5-10.1); Chloride, Blood 109 mmol/L (98-108); Creatinine, Blood 0.72 mg/dL (0.60-1.20); Globulin, Blood 3.8 g/dL (2.2-4.0); Glomerular Filtration Rate >60 (60-); Glucose, Blood 85 mg/dL (70-99); Potassium, Blood 3.7 mmol/L (3.5-5.5); Sodium, Blood 142 mmol/L (136-145); Total Protein, Blood 6.5 g/dL (6.4-8.2)
--- NOTE | 2019-07-28 06:40 | NUR ---
SUMMARY PT RESTING IN BED. HAS BEEN HALLUCINATING MOST OF THE NIGHT. WENT FROM A/O X3 TO A/O TO PERSON ONLY. DIFFICULT TO REDIRECT AT TIMES. TRYING TO GET OOB CONSTANTLY. UNHOOKS IV LINE AND DETACHES ANY CORDS HE CAN FIND. WANTING TO GO OUTSIDE TO SMOKE. HALLUCINATING ABOUT BIRDS ON PEOPLES SHOULDERS AND ALSO THAT HIS MOM AND DAD ARE IN THE ROOM. CIWA WAS 15 OR GREATER ALL NIGHT. HAVE BEEN MEDICATING WITH ATIVAN AND LIBRIUM. PT KEEPS SAYING HE IS GOING TO LEAVE TODAY. HAD TO PLACE IN ALEX VEST FOR SAFETY. PT MESSED WITH IV ENOUGH THAT IT WAS LEAKING, NEW IV STARTED. NEVER HAD TO RESTART PRECEDEX BUT CONSISTANTLY USING ATIVAN AND LIBRIUM. DID GET PT UP AT SIDE OF BED 2X DURING THE NIGHT TO STAND. USES FWW BUT IS VERY UNSTEADY ON FEET DUE TO TREMORS.
--- NOTE | 2019-07-28 09:19 | NUR ---
CARE ASSUMED CARE AND REPORT ASSUMED FROM RAJ PAL. PT A/O X SELF. CONFUSED AT TIMES BUT CAN BE REDIRECTED. IS ABLE TO ANSWER QUESTIONS APPROPRIATELY AND FOLLOW DIRECTIONS. DENIES PAIN AT THIS TIME. CONDOM CATH SECURED AND DRAINING. PT IN ALEX BATEST. 3 LIQUID BMS THIS AM. PT STATES NO MORE MILK AND PUDDING AND ADMITS TO BEING LACTOSE INTOLERANT. BP WNL. NSR, HR 80-90S. NS INFUSING AT 75 ML/HR PER ORDER. WILL CONTINUE TO MONITOR.
--- NOTE | 2019-07-28 11:52 | NUR ---
REASSESSMENT PT CALM AND COOPERATIVE WITH STAFF. ABLE TO MAKE APPROPRIATE CONVERSATION AND FOLLOW SIMPLE COMMANDS. DENIES PAIN AT THIS TIME. IV SALINE LOCKED. VSS. REMAINS IN ALEX VEST. SITTING UP EATING LUNCH AND DRAWING. AFEBRILE. CIWA 7. WILL CONTINUE TO MONITOR.
--- NOTE | 2019-07-28 15:53 | NUR ---
REASSESSMENT PT REMAINS IN ALEX VEST. WITH HELP OF PT, PT GOT INTO WHEELCHAIR AND WAS ABLE TO WHEEL HIMSELF AROUND THE UNIT USING HIS FEET. HAS BECOME QUITE RESTLESS SINCE GETTING BACK INTO BED FOLLOWING EXERCISE. HE IS CONTINUALLY ASKING TO LEAVE, TO GO SMOKE. CIWA UP TO 19. ATIVAN 4 MG IVP GIVEN ALONG WITH LIBRIUM 50 MG. PT NOW COLORING. VSS. AFEBRILE. NS CONTINUES TO INFUSE AT 75 ML/HR. WILL CONTINUE TO MONITOR CLOSELY.
--- NOTE | 2019-07-28 17:34 | NUR ---
SHIFT SUMMARY PT ORIENTATION WAXED AND WANED ENTIRE SHIFT. HE GOES FROM UNDERSTANDING AND CONVERSING TO THEN BEING CONFUSED. CIWA RANGED FROM 5-19 DURING SHIFT. ATIVAN 4 MG IVP GIVEN X 1 DURING SHIFT. NON SCHEDULED LIBRIUM GIVEN 1 X DURING SHIFT. PT UP FROM BED AND WHEELED AROUND UNIT. VERY UNSTEADY ON FEET. WILL GIVE BEDSIDE, HANDOFF REPORT TO NOC RN.
--- NOTE | 2019-07-28 19:43 | NUR ---
PT RESTING IN BED. A/O TO PERSON. STATES DATE "July". STATES HE HAS BEEN SOBER FOR 10 YEARS OF TODAY. WILL LOOK OVER SHOULDER AND TALK TO HIS "MOM". REORIENTED TO HOSPITAL STAY. SEE CIWA ASSESS. IN ALEX VEST DUE TO IMPULSIVENESS AND PROFOUND WEAKNESS MAKING HIM AN INCREASED RISK FOR FALL. BED ALARM ARMED WELL.
--- NOTE | 2019-07-29 00:05 | NUR ---
PT BECAME VERY AGITATED. HAVING HALLUCINATIONS. SWINGING AT STAFF AND TRYING TO EXIT BED. TREMORS ARE MORE SEVERE THAN DOCUMENTED EARLIER. CIWA IS 30 AFTER RECEIVING ATIVAN AND LIBRIUM. PT IS NOT SAFE TO GET OOB AND IS UNABLE TO FOLLOW COMMANDS. HAD TO PLACE IN SOFT WRIST RESTRAINTS ALONG WITH ALEX VEST. SPOKE WITH DECLAN ARROYO ABOUT RESTARTING PRECEDEX AND SHE IS OK WITH THAT. DECLAN WAS HERE WHEN PT GRABBED IV POLE AND PULLED IT OVER ON TOP OF HIMSELF IN BED. PT IS YELLING AT MOM AND DAD AND LOOKING TOWARDS CORNER OF THE ROOM. THERE IS NO ONE IN THE ROOM.
--- NOTE | 2019-07-29 06:38 | NUR ---
SUMMARY PT STARTED THE NIGHT OUT IN ONLY A ALEX VEST AND WAS COOPERATIVE. WOULD TRY TO CRAWL OOB CONSTANTLY AND VERY TREMULOUS. THE NIGHT WENT ON PT BECAME MORE TREMULOUS TO WHERE HE WAS NOT FIT TO GET OOB. GAVE ATIVAN AND LIBRIUM BUT LIKE THE NIGHT BEFORE IT DID NOT HAVE MUCH EFFECT ON HIM. AT ONE POINT HE WAS SWINGING AT STAFF WHILE TRYING TO CLIMB OVER THE BEDRAIL. HE ALSO PULLED HIS IV POLE OVER ON TOP OF HIMSELF IN BED. HAVING HALLUCINATIONS AND YELLING AT PEOPLE THAT WERE NOT IN THE ROOM. HAD TO PUT PT IN WRIST RESTRAINTS WELL ALEX VEST PT WAS PULLING AT HIS LINES. CALLED DECLAN ARROYO AND HAD TO START PRECEDEX TO GET PT UNDER CONTROL. PT DID NOT SLEEP AT ALL THE NIGHT BEFORE. AFTER PRECEDEX WAS STARTED PT SLEPT. STILL RESTING QUIETLY NOW ON 0.1 MCG/KG/MIN.
--- NOTE | 2019-07-29 07:59 | NUR ---
CARE ASSUMED REPORT RECEIVED, CARE ASSUMED AT 0700 FROM KAE ANTHONY. PT ASLEEP, DIFFICULT TO AROUSE. PERFORMED EYE CARE AND ORAL CARE AND SINCE THEN PT HAS BEEN WIDE AWAKE, TALKING. CIWA VARIES, WHEN PT FIRST AWAKE PT HAVING MASSIVE AMOUNT OF TREMORS BUT NOT RESPONDING OTHERWISE. NOW THAT PT IS AWAKE, TREMORS LESS SEVERE BUT STILL PRESENT. PT APPROPRIATELY PARTICIPATES IN CONVERSATION BUT ALSO TALKING ABOUT THINGS THAT ARE UNRELATED TO CURRENT CONVERSATION. ONCE STAFF NOT IN ROOM, PT CONTINUES TO TALK TO SELF AND TO PEOPLE THAT ARE NOT IN THE ROOM, REFERENCING, "MOM." PRECEDEX CONTINUES AT 0.1 MCG/KG/HR. PT HAS BILAT WRIST RESTRAINTS AND ALEX VEST IN PLACE. PT PULLING AT CORDS/LINES WITHIN REACH AND YELLING, "TAKE THESE OFF." EDUCATION REGARDING PATIENT SAFETY PROVIDED. PT HAS ONE IV, ATTEMPTED X2 A SECOND IV UNSUCCESSFULLY. SUPERVISOR WET END NOTIFIED, PLAN FOR 2ND IV TO BE PLACED. VITALS STABLE. SEE ASSESSMENT/FLOWSHEETS.
--- NOTE | 2019-07-29 09:06 | NUR ---
AGITATION/BREAKFAST/MORNING MEDICATIONS DISCUSSED WITH PATIENT TAKING OF WRIST RESTRAINTS AND PT AGREEABLE TO FOLLOW DIRECTIONS, LEAVE CORDS/LINE IN PLACE, AND EAT BREAKFAST. WRIST RESTRAINTS OFF, BREAKFAST TRAY SET UP ON BEDSIDE TABLE OVER PT'S LAP. PT IMMEDIATELY PUSHES TRAY AWAY, TAKES BLOOD PRESSURE CUFF OFF, REACHES FOR IV LINE. WHEN ASKED TO LEAVE IV IN PLACE PT STATES, "NO. I AM GETTING OUT OF BED TO CALL MY MOM. SHE'S BEEN THROWING UP ALL DAY YESTERDAY AND I NEED TO CHECK ON HER." UNABLE TO REDIRECT PT TO EAT BREAKFAST INDEPENDENTLY OUT OF WRIST RESTRAINTS. ATTEMPTED TO ASSIST PT TO EAT BREAKFAST AND GIVE PILLS. PT SITTING UP IN HIGHEST BED POSITION, GIVEN A BITE OF MUFFIN PER REQUEST FOLLOWED BY SOME ORANGE JUICE. PT ABLE TO CHEW AND SWALLOW. ATTEMPTED TO GIVE PT PILLS ONE AT A TIME. PT BEGAN CHEWING THEM. TOLD PT HE NEEDED TO SWALLOW THEM. GAVE HIM MULTIPLE SIPS OF WATER. PT GOT A FEW DOWN AND THEN BEGAN HOLDING PILLS AND WATER IN MOUTH, DIRECTED PT TO SWALLOW AND PT SHOOK HIS HEAD, DIRECTED PT TO SPIT IT OUT AND HE ALSO DID NOT DO. SUCTIONED WATER AND PILL OUT OF MOUTH. PT BEGAN COUGHING AFTERWARDS. ATTEMPTED ANOTHER SIP OF JUST WATER WITH SAME OCCURANCE. NOT SAFE TO TAKE PILLS, WATER OR FOOD AT THIS TIME. PT EDUCATED AND UPSET. CONTINOUSLY REQUESTING TO USE PHONE. SET UP PATIENT WITH PHONE, PT SAYS, "TAKE MY WRISTS OUT SO I CAN CALL." WHEN ASKED IF PT WOULD LEAVE IV LINE IN PLACE PT SAYS "NO." PT UNABLE TO PROVIDE NURSE WITH MOTHER'S NUMBER SO THAT HE CAN BE ASSISTED TO CALL HER. PRECEDEX INCREASED PT SIGNFICANTLY MORE AGITATED THAN INITIAL ASSESSMENT, AND UNABLE TO FOLLOW DIRECTIONS TO TAKE ADEQUATE DOSE OF ORAL LIBRIUM.
--- NOTE | 2019-07-29 13:25 | NUR ---
UPDATE SINCE PREVIOUS NOTE, PT HAS SLEPT SOUNDLY, BUT IS REPOSITIONING SELF OCCASIONALLY IN BED AND AROUSES WITH NOXIOUS STIMULI. PRECEDEX TURNED DOWN TO 0.1 MCG/KG/HR FOR LUNCH TIME. DURING ASSESSMENT, PT STATES, "DO YOU SEE THOSE SATAN CHILDREN," AND POINTING AT THE DOORWAY. ONCE TOLD THERE ARE NO SATAN CHILDREN, PT STATES, "OH. IM HAVING HALLUCINATIONS. I THOUGHT THEY WERE GOING TO FIX THAT." RE-EDUCATED PT ON PLAN OF CARE AND PT STATES, "OH MAYBE I AM CRAZY." WHEN ASKED IF HE HAS EVERY HAD ANXIETY, DEPRESSION, OR OTHER PSYCHIATRIC SYMPTOMS HE STATES, "YES. WHY DO YOU THINK I DRINK SO MUCH?" PT TAKEN OUT OF WRIST RESTRAINTS FOR LUNCH AND IS FEEDING HIMSELF. ABLE TO TAKE PO MEDICATIONS WITHOUT DIFFICULTY.
--- NOTE | 2019-07-29 14:59 | NUR ---
UPDATE SINCE PREVIOUS NOTE, PT HAS CONTINUED TO TOLERATE BEING OUT OF WRIST RESTRAINTS WITHOUT PULLING OUT LINES OR BEING A DANGER TO HIMSELF. HE DOES CONTINUE TO CLIMB OUT OF BED, SO ALEX IN PLACE. PT WORKED WITH PHYSICAL THERAPY, ABLE TO GET TO CHAIR WITH HEAVY TWO PERSON ASSIST. PT BACK TO BED FOR CONCERN OF STAFF BEING UNABLE TO GET HIM BACK TO BED WITHOUT EXTRA ASSISTANCE. PT CONTINUES TO BE SHAKEY AND HAVING SOME HALLUCINATIONS BUT OTHERWISE CIWA IS NEGATIVE. PT TALKATIVE WITH STAFF, PRIMARILY JUST WANTS SOMEONE TO BE IN ROOM TALKING WITH HIM AT ALL TIMES. SET UP PT TO GIVE HIMSELF BEDBATH, WITH MARKERS AND PAPER TO DRAW, AND WITH VARIOUS SNACKS.
--- NOTE | 2019-07-29 17:51 | NUR ---
SUMMARY SINCE PREVIOUS NOTE, PT HAS BEEN CALM AND FOLLOWING DIRECTIONS. PT DOES REPEATEDLY PULL OF HEART MONITOR LEADS AND BLOOD PRESSURE CUFF, AND WHEN ASKED TO NOT DO SO HE SAYS, "SORRY, I WAS JUST TRYING TO GET YOUR ATTENTION." PT EDUCATED EXTENSIVELY ON USING CALL LIGHT AND THE APPROPRIATE TIMES TO REQUEST STAFF ASSISTANCE. PT AGREEABLE. PRECEDEX OFF SINCE 1729. PT EATING DINNER INDEPENDENTLY. DISCUSSED NEW MEDICATION SEROQUEL WITH PT AND HE IS AGREEABLE AND HOPEFUL THAT IT WILL BE HELPFUL. PT STATES HE DOES NOT REMEMBER EVENTS FROM LAST NIGHT. PT DOES REPEATEDLY REQUEST TO GET UP AND WALK AND DOESN'T UNDERSTAND HOW WEAK HE HAS BECOME SINCE BEING HERE. PT DOING LEG AND ARM EXERCISES IN BED. VITALS STABLE THROUGHOUT SHIFT. DR. OLSON IN FOR ASSESSMENT THIS AFTERNOON AND PLAN IS FOR REPEAT PSYCHIATRIC EVALUATION ON WEDNESDAY. AT THIS TIME PT REPORTS BEING SLEEPY BUT WANTS TO KEEP DRAWING FOR AWHILE BEFORE FALLING ASLEEP. WILL HOLD SEROQUEL DOSE UNTIL PT CLOSER TO BEING READY FOR BED.
--- NOTE | 2019-07-29 19:00 | NUR ---
REPORT TO KAE ANTHONY TO ASSUME CARE
--- NOTE | 2019-07-29 19:54 | NUR ---
PT RESTING IN BED. COLORING WITH MARKERS. PT IS A/O TO SELF AND MONTH. HOLDING CONVERSATION OK. PLEASANT, COOPERATIVE, AND REDIRECTABLE. WILL PULL AT ALEX VEST AND FREQUENTLY TAKES HEART MONITOR LEADS OFF. PLACED ICE PACK TO LFA THAT IS RED AND SWOLLEN. IV ABOVE SITE FLUSHES WELL AND IS NOT RED OR SWOLLEN.
--- NOTE | 2019-07-30 00:15 | NUR ---
PT BECOMING MORE AGITATED THE NIGHT GOES ON. MORE AND MORE DIFFICULT TO REDIRECT. CIWA 27. PT CONSTANTLY TRYING TO GET OOB BY CLIMBING OVER THE BEDRAILS. HALLUCINATING SEEING PEOPLE AND ANIMALS THAT ARE NOT IN THE ROOM. HAD TO PLACE PT BACK ON PRECEDEX TO DUE TO BEING OUT OF CONTROL.
--- NOTE | 2019-07-30 06:03 | NUR ---
SUMMARY PT GOT PROGRESSIVELY MORE AGITATED THE NIGHT WENT ON. CONSTANTLY TRYING TO CLIMB OVER THE BEDRAIL. NOT FOLLOWING COMMANDS. UNABLE TO REDIRECT. AT ONE POINT HE LUNGED TOWARD STAFF MEMBER AND STATES "I WAS JUST GOING TO PUSH HER OUT OF THE WAY". WAS HALLUCINATING THAT THERE WERE PEOPLE AND ANIMALS IN HIS ROOM. HE IS CONSCIOUS OF HALLUCINATIONS AND EVEN ASKED RN IF THE NEW MED THAT WAS SUPPOSED TO HELP WITH HIS HALLUCINATIONS WAS GIVEN. HAD TO RESTART PRECEDEX. TITRATED PRECEDEX OFF THIS AM TO SEE IF HE WILL CLEAR UP AGAIN FOR DAY SHIFT. REMAINS IN ALEX VEST DUE TO INCREASED FALL RISK. NO SIGN OF DISTRESS THIS AM.
[2019-07-30 08:04] LABS: Hematocrit 40.5 % (37.0-53.0); Hemoglobin 12.4 g/dL (13.5-17.5); Mean Corpuscular HGB 28.6 pg (26.0-34.0); Mean Corpuscular HGB Conc 30.6 g/dL (31.5-36.5); Mean Corpuscular Volume 93 fL (80-100); Platelet Count 357 K/mm3 (150-400); RDW Coefficient Variation 18.5 % (11.7-14.2); RDW Standard Deviation 63.4 fL (35.1-46.3); Red Blood Cell Count 4.34 M/mm3 (4.30-5.90); White Blood Cell Count 8.71 K/mm3 (4.00-11.30)
[2019-07-30 08:48] LABS: Albumin, Blood 2.7 g/dL (3.4-5.0); Anion Gap 7 mmol/L (6-16); Blood Urea Nitrogen 6 mg/dL (8-24); Bun/Creatinine Ratio 7.7 (12.0-20.0); CO2, Blood 26 mmol/L (21-32); Calcium, Blood 9.3 mg/dL (8.5-10.1); Chloride, Blood 112 mmol/L (98-108); Creatinine, Blood 0.78 mg/dL (0.60-1.20); Glomerular Filtration Rate >60 (60-); Glucose, Blood 79 mg/dL (70-99); Phosphorus, Blood 4.4 mg/dL (2.5-4.9); Potassium, Blood 4.1 mmol/L (3.5-5.5); Sodium, Blood 145 mmol/L (136-145)
--- NOTE | 2019-07-30 09:01 | NUR ---
CARE ASSUMED REPORT RECEIVED, CARE ASSUMED AT 0700 FROM KAE ANTHONY. PT INITIALLY SLEEPING, AROUSES FOR ASSESSMENT AND MORNING ADL'S. SETUP ASSIST FOR PT TO WASH FACE/HANDS PRIOR TO BREAKFAST. PT TO HIGH FOWLERS POSITION FOR BREAKFAST. PROVIDED WITH COFFEE. ENCOURAGED PT TO EAT AND THEN FILL OUT MENU. PT ATE INDEPENDENTLY FOR APPROX 10 MINUTES AND THEN BEGAN TRYING TO GET OUT OF BED, YELLING "I AM GOING IN THE LIVING ROOM TO WATCH TV WITH DAD." AND "YOU CAN'T STOP ME FROM WALKING AROUND IN MY OWN HOUSE." INITIALLY PT REDIRECTABLE AND ABLE TO ASSIST SCOOTING SELF BACK UP IN BED AND CONTINUING WITH BREAKFAST. AFTER TWO EPISODES OF THIS, PT COMES AGITATED, SWINGING LEGS OUT OF BED, PULLING VEST RESTRAINT OFF, PULLING ON SIDES OF RESTRAINT, UNHOOKING CORDS. ATTEMPTED TO VERBALLY REDIRECT. PT CONTINUES TO THINK HE IS AT HOME AND CAN WALK OUT TO GO SMOKE. HE IS FIXATED ON SMOKING AT THIS TIME. OFFERED NICOTINE PATCH, PT REFUSES. ATTEMPTED TO DISTRACT PT WITH CONTINUING WITH BREAKFAST OR COLORING AND PT CONTINUES TO ESCALATE. MEDICATED WITH ATIVAN. PT NOT FOLLOWING DIRECTIONS ENOUGH TO TAKE PO. PT CONTINUES TO PULL AT CORDS/LINES, ATTEMPT TO TAKE OFF VEST AND SWINGING LEGS OVER BEDRAIL AFTER ATIVAN AND MULTIPLE ATTEMPTS TO EDUCATE. PRECEDEX RESTARTED AT 0.3 MCG/KG/HR. .
--- NOTE | 2019-07-30 14:00 | NUR ---
DR. MAY COMMUNICATION/PLAN OF CARE SPOKE WITH DR. MAY REGARDING PLAN OF CARE FOR PATIENT HE IS CONSISTENTLY REQUIRING PRECEDEX DURING NIGHT AND EARLY-MID MORNING. PER DR. MAY, RE-CONSULT PSYCHIATRY TOMORROW FOR REASSESSMENT AND RECOMMENDATIONS REGARDING PSYCHIATRIC MEDICATIONS. ALSO PER DR. MAY, OK FOR PT TO BE OFF TELEMETRY, BUT KEEP PT ICU STATUS HE IS ROUTINELY NEEDED PRECEDEX, AND PLACE PT BACK ON MONITOR IF PRECEDEX IS NEEDED.
--- NOTE | 2019-07-30 18:18 | NUR ---
SUMMARY PT REQUIRED PRECEDEX FOR SHORT PERIOD THIS MORNING, BUT SINCE THEN HAS BEEN MOSTLY CALM AND COOPERATIVE. PT DOES OCCASIONALLY GET AGITATED BUT IS REDIRECTABLE. PT REQUIRING MANY DISTRACTIONS TO KEEP FROM BEING AGITATED. PT HAS MADE PHONE CALLS TO FRIENDS, COLORED, SHOWERED, EATEN LUNCH AND DINNNER, AND HAS BEEN ALLOWED TO USE WHEELCHAIR TO GET AROUND IN ORDER TO REGAIN STRENGTH AND ALLOW PT SOME INDEPENDENCE TO PREVENT FURTHER AGITATION. PT DOES CONTINUE TO HAVE HALLUCINATIONS, AND IS IDENTIFYING THEM. HE REPEATEDLY TALKS ABOUT THINGS THAT ARE NOT PRESENT, AND THEN SAYS, "I THOUGHT MY PILLS WERE GOING TO FIX MY HALLUCATIONS." PT EDUCATED. VITALS STABLE. SEE REPEAT ASSESSMENTS AND FLOWSHEETS.
--- NOTE | 2019-07-30 18:44 | NUR ---
HALLUCINATIONS PT REPORTS, "MY HALLUCINATIONS SEEM WAY DOWN TONIGHT." PT TELLING ME THAT HE SEES FOOTBALL HELMETS UNDERNEATH THE TV. ALSO BELIEVES MUSIC IS PLAYING. CALM, COOPERATIVE AND COLORING AT THE TIME.
--- NOTE | 2019-07-30 19:24 | NUR ---
REPORT TO KAE ANTHONY TO ASSUME CARE
--- NOTE | 2019-07-30 20:57 | NUR ---
PT A/O TO SELF. FOLLOWING COMMANDS. PLEASANT. GOT PT OOB AND WALKED WITH WALKER, GAIT BELT, AND 2 PERSON ABOUT 100 FT, THEN GOT PT IN W/C. HE IS NOW WHEELING SELF IN W/C BACK AND FORTH IN HALLWAY. ALEX VEST ON. NO SIGN OF DISTRESS.
--- NOTE | 2019-07-31 06:14 | NUR ---
SUMMARY PT A/O TO SELF. WAS UP IN W/C FOR ABOUT 4 HOURS TOTAL DURING THE NIGHT. GOT HIM UP TO W/C OR WALKED HIM IN UNIT ANY TIME HE WAS FEELING ANXIOUS. PT WAS MORE COOPERATIVE TONIGHT AND ABLE TO FOLLOW COMMANDS. 2 PERSON ASSIST WITH GAIT BELT AND FWW. STILL UNSTEADY ON FEET. SLEPT FOR ALMOST 3 HOURS WHICH IS AN IMPROVEMENT FOR PT. WAS OFF PRECEDEX ALL NIGHT. ONLY TOOK LIBRIUM AND WAS ABLE TO RECOGNIZE WHEN HE NEEDED MEDS DUE TO TREMORS. REMAINS IN ALEX VEST DUE TO BEING IMPULSIVE. STILL CONSTANTLY PICKS AT TELE AND ALEX VEST. STILL HAVING HALLUCINATIONS WITH PEOPLE THAT ARE NOT PRESENT. NO ACUTE CHANGES.
--- NOTE | 2019-07-31 07:42 | NUR ---
CARE ASSUMED REPORT RECEIVED, CARE ASSUMED AT 0700 FROM KAE ANTHONY. PRIOR TO REPORT, PT NOTED TO BE STANDING UP IN ROOM. PT HAD SLIPPED OUT OF ALEX VEST. TO BEDSIDE TO ASSIST PT TO CHAIR, ALEX VEST PLACED BACK ON IN RECLINER. PT SLIGHTLY AGITATED, TALKING ABOUT NEEDING TO GET UP TO GET SOME OF HIS MOM'S SPAGHETTI. PT AGREEABLE TO CHEESE AND CRACKERS. ONCE FINISHED, PT BACK TO ATTEMPTING TO GET OUT OF RECLINER. ATTEMPTED TO DISTRACT PT WITH COLORING UNSUCCESSFULLY. PT CONTENT WITH MORE CHEESE AND CRACKER AND SPRITE. PT NOW EATING BREAKFAST. PT BELIEVES HE IS AT HOME AND DOES NOT KNOW THE DAY, BUT IS APPROPRIATE OTHERWISE. WHEN ASKED, PT AGREES THAT HE IS STILL HAVING SOME HALLUCINATIONS. TREMORS CONTINUE. SEE CIWA ASSESSMENT. VITALS STABLE. CONSULT SENT TO ER FOR PSYCHIATRIC RE-EVALUATION TODAY.
--- NOTE | 2019-07-31 07:51 | NUR ---
DR. ABRAHAM TO BEDSIDE FOR ASSESSMENT. TRANSFER TO MEDICAL FLOOR WITH NO TELEMETRY IF BACK HALLWAY AVAILABLE. OTHERWISE, CONTINUE WITH CURRENT PLAN OF CARE.
--- NOTE | 2019-07-31 13:33 | NUR ---
PSYCH CONSULT OLU WHEELER NURSE PRACTIONER TO BEDSIDE FOR ASSESSMENT. WAITING FOR UPDATED ORDERS/PLAN OF CARE NOTE.
--- NOTE | 2019-07-31 18:26 | NUR ---
SUMMARY SINCE PSYCH CONSULT, PT REQUESTED TO GET TO BED TO TAKE A NAP. PT HAS BEEN NAPPING SINCE. ATTEMPTED TO WAKE PATIENT MULTIPLE TIMES FOR OCCUPATIONAL THERAPY, PHYSICAL THERAPY AND TO SPEAK WITH FATHER AND PT REFUSES TO WAKE UP. THIS EVENING PT FINALLY AWAKE WITHIN THE LAST 20 MINUTES, SLIGHTLY AGITATED AND SHAKEY BUT OTHERWISE CIWA NEGATIVE. SETUP ASSIST TO CALL BACK FATHER AND TO EAT HIS DINNER. OTHERWISE, NO CHANGES. VITALS STABLE. PT CONTINUES TO REQUIRE ALEX VEST FOR SAFETY PT IS IMPULSIVE AND HEAVY ONE TO TWO PERSON ASSIST TO STAND, PT ONLY ABLE TO TAKE SHORT STEPS AT A TIME WITHOUT GETTING TOO WEAK AND NEEDING TO SIT BACK DOWN. PT COOPERATIVE.
--- NOTE | 2019-07-31 19:29 | NUR ---
REPORT TO KAE HOLLIDAY TO ASSUME CARE
--- NOTE | 2019-07-31 19:39 | NUR ---
ASSUMED CARE NOTE: ASSUMED CARE OF PT AT 1900, RECEVIED REPORT FROM PING PAL. PT IN CHAIR WITH ALEX VEST ON, TAB ALARM ALSO IN PLACE. PT IS ALERT AND ORIENTED TO SELF/FAMILY. IS FOLLOWING DIRECTIONS. HOWEVER, HE IS UNABLE TO STATE TIME/DATE. PT IS ATTEMPTING TO GET OUT OF ALEX VEST RESTRAINT. PT DOES NOT UNDERSTAND WHY HE IS IN THE HOSPITAL. ATTEMPTED TO REORIENT PATIENT TO CURRENT SITUATION. PT CALLED HIS MOTHER, AND BEGAN TO YELL "COME GET ME NOW, OR I AM WALKING HOME". PT WAS ASKED TO LOWER VOICE. PT IS NOW ON THE CALL LIGHT "HAVING A CONVERSATION WITH HIS FATHER" (TV IS OFF). PT IS GRABBING AT OBJECTS THAT ARE NOT THERE. WHEN ASKED HE IS REACHING FOR, HE STATES "THE CAT". WILL CONTINUE TO MONIOTR PT T/O SHIFT.
[2019-08-01 03:30] LABS: Anion Gap 7 mmol/L (6-16); Blood Urea Nitrogen 8 mg/dL (8-24); Bun/Creatinine Ratio 10.4 (12.0-20.0); CO2, Blood 27 mmol/L (21-32); Calcium, Blood 9.2 mg/dL (8.5-10.1); Chloride, Blood 110 mmol/L (98-108); Creatinine, Blood 0.77 mg/dL (0.60-1.20); Glomerular Filtration Rate >60 (60-); Glucose, Blood 84 mg/dL (70-99); Potassium, Blood 3.8 mmol/L (3.5-5.5); Sodium, Blood 144 mmol/L (136-145)
--- NOTE | 2019-08-01 04:36 | NUR ---
UPDATE: PT AWOKE AGITATIED FROM SLEEP. TOOK OFF ALEX VEST AND ATTEMPTED TO GET OUT OF BED. PT WAS NOT FOLLOWING DIRECTIONS AND WAS REFUSING TO PUT ALEX BACK ON. TOOK THREE STAFF MEMBERS TO HELP PT INTO THE CHAIR. PT WAS GIVEN 4MG OF ATIVAN PER EMAR, TO AID WITH ANXIETY. PT HAS ALEX IN CHAIR, AND IS COLORING.
--- NOTE | 2019-08-01 05:22 | NUR ---
SHIFT SUMMARY: PT WAS ABLE TO SLEEP 6 HOURS UNINTERRUPTED. PT USED URINAL T/O SHIFT, PT WAS ENCOURAGED TO VOID, EVERY TWO HOURS WHILE AWAKE. PT CONTINUES TO BE ON RA, WITH SPO2 ABOVE 90%. PT RECEVIED ATIVAN ONCE THIS SHIFT DUE TO INCREASED ANXIETY/AGITATION. PT IS NOW IN CHAIR, COLORING AWAY. WHEN STAFF SPEAKS NEAR HIS ROOM, HE BECOMES ANXIOUS AND ATTEMPTS TO GET UP OUT OF BED/CHAIR. PT IS UNSTEADY ON FEET, GAIT BELT NEEDED WHEN ATTEMPTING TO AMBULATE PT. WILL CONTINUE TO MONITOR PT UNTIL REPORT IS GIVEN TO ONCOMING SHIFT.
--- NOTE | 2019-08-01 11:54 | NUR ---
REASSESMENT: PT HAS BEEN BETWEEN THE CHAIR AND THE BED THIS MORNING. DR. ABRAHAM CAME BY AND SAYS PT IS OK TO DISCHARGE IF HE HAS SOME PLACE SAFE TO GO. SANNA, CATH LABORATORY TECHNICIAN IS WORKING ON CONTACTING HIS PARENTS. PT TOLD HER THAT HE REFUSES TO GO TO A SNF. PT IS STILL UNSTEADY TODAY, NEEDING A LOT OF ASSISTANCE TO MAINTAIN HIS BALANCE. PT REQUIRES FREQUENT REORIENTATION TO NOT GET OUT OF THE CHAIR OR BED WITHOUT ASSISTANCE. STILL REQUIRING THE VEST TO KEEP HIM FROM GETTING UP ON HIS OWN. TAB AND BED ALARMS BEING USED WELL. NO OTHER REQUESTS FROM PT AT THIS TIME. CONTINUING TO MONITOR.
--- NOTE | 2019-08-01 16:56 | NUR ---
PT IS CALLING 911 ASKING FOR PLAYER DEVELOPMENT MANAGER TO COME LET HIM OUT OF THE HOSPITAL. TOOK PHONE AWAY AND TLAKED WITH PT ABOUT SAFETY CONCERNS WITH HIM LEAVING. PT IS STILL WANTING TO LEAVE. TALKED WITH DR. ABRAHAM ABOUT CONCERNS FOR PT SAFETY AND HIM WANTING TO LEAVE NOW. DR. ABRAHAM SAID HE WOULD COME BY AND TLAK TO PT. PT INFORMED OF THIS AND ALSO DISCUSSED FURTHER WITH PT WHERE HE IS GOING TO GO UPON DISCHARGE. PT IS TRYING TO CONTACT HIS PARENTS OR SOMEONE TO GIVE HIM A RIDE CURRENTLY.
--- NOTE | 2019-08-01 17:31 | NUR ---
PT WAS UNABLE TO REACH ANY FAMILY. ASSISTED PT TO GET IN WC AND LETTING HIM WANDER AROUND UNIT. DISCUSSED BOUNDARIES WITH HIM AND F HE BREAKS THEM HE WILL HAVE TO GO BACK INTO HIS ROOM. PT APPEARS CALMER SINCE BEING ABLE TO GET OUT OF HIS ROOM. CONTINUE TO MONITOR.
--- NOTE | 2019-08-02 00:25 | NUR ---
START OF SHIFT: PT SLEPT T/O FIRST HALF OF SHIF WITHOUT COMPLICATIOS. PT IS NOW AWAKE, USED BSC C/ ONE-PERSON ASSIST. WALKED ABOUT UNIT USING WALKER ASSISTED C/ GATE BELT AND ONE-PERSON STAND-BY ASSIST. PT WAS FAIRLY STEADY. PT CURRENTLY IN W/C SECURED C/ ALEX VEST. PT USING FEET TO WALK THE W/C AROUND UNIT WHILE SIPPING DECAF COFFEE. TRYING TO REASON C/ PT OF THE TIME OF NIGHT AND TRYING TO GET HIS ROUTINE AND SLEEP SCHEDULE BACK TO NORMAL. PT INSISTED ON WAKING AND DRINKING COFFEE. WILL CONTINUE TO MONITOR AND ENCOURAGE TO TRY MORE SLEEP.
--- NOTE | 2019-08-02 06:20 | NUR ---
PT HAS DONE WELL T/O NOC. PT HAS SLEPT AND WAS AWAKE FROM [phone] WITHOUT INCODENT. VSS. PT CURRENTLY SLEEPING. MAY BE ABLE TO D/C ALEX VEST THIS AM.
[2019-08-02] MEDS ORDERED: METO25 PO (10:16)
[2019-08-02] MEDS ORDERED: FOLI1 PO (10:16)
[2019-08-02] MEDS ORDERED: Seroquel Xr50 MG PO (10:17)
[2019-08-02] MEDS ORDERED: NICO21TP TOP (10:17)
[2019-08-02] MEDS ORDERED: Thiamine HCl100 MG PO (10:18)
--- NOTE | 2019-08-02 11:06 | NUR ---
DISCHARGE Pt discharged from unit at 1055 via wheelchair accompanied by this RN. Pt escorted to [facility], where he stated he would wait for his father. Prior to discharge, this RN spoke to pt's father, who stated he was willing to pick the patient up and take him home. Discharge medications called to [facility] in [place], including new dose of seroquel - 75 mg at bedtime. This RN notified Dr Guajardo notified of dose change per Dr Malhotra. This RN attempted to call pt's primary care, Kunal Douglas, to schedule follow up appoitment. Unable to reach staff member at office. technical delivery manager Padmaja PAL aware. Pt provided with office phone number and follow up timeline.
== END 2019-08-02 10:50 | disposition home or self-care (01) | DRG 897 ==
LOC: ER 10:21 → ICUE 13:04 → ICUW 13:04 → ICUE 15:27
PROVIDERS: Emergency Medicine; Hospitalist; Internal Medicine; Nurse Practitioner Acute Care; ADMIT Internal Medicine
DX: F10.231 Alcohol dependence with withdrawal delirium (principal); E51.2 Wernicke's encephalopathy; E87.6 Hypokalemia; R74.0 Nonspecific elevation of levels of transaminase and lactic acid dehydrogenase [LDH]; K70.10 Alcoholic hepatitis without ascites; R45.1 Restlessness and agitation; R44.1 Visual hallucinations; R41.0 Disorientation, unspecified; Y90.0 Blood alcohol level of less than 20 mg/100 ml
CPT/HCPCS: 36415; 70450; 80048; 80053; 80069; 81003; 82140; 83735; 84100; 84132; 84484; 85025; 85027; 93005; 93010; 96365; 96375; 96376; 97110; 97116; 97162; 97166; 97530; 97535; 99285-25; A9270-GY; G0480; J1630; J1650; J2060; J2550; J3411; J3475; J3480; J7030; J7042